=== PATIENT | female | born 1935 | race Caucasian/White ===

== ENCOUNTER → 2018-06-19 | Outpatient (CLI) | payer MEDICARE ==
[~2018-06-19] MED LIST: ASCO500T8 PO; ASPI-496 PO; ASPI325T17 PO; CHOL10002 PO; HYDR-3240 PO; HYDR25TA6 PO; OMEG1CAP34 PO; TRAM50TA2 PO; TURM500C7 PO; UBID100C41 PO
[2018-06-19 08:33] LABS: BASOPHILS # (AUTO) 0.02 x10^3/uL (0-0.1); BASOPHILS % (AUTO) 1 % (0-1); EOSINOPHILS # (AUTO) 0.12 x10^3/uL (0-0.4); EOSINOPHILS % (AUTO) 3 % (1-7); LYMPHOCYTES # (AUTO) 0.85 x10^3/uL (1-3.4); LYMPHOCYTES % (AUTO) 21 % (22-44); MD NO; MEAN CORPUSCULAR HEMOGLOBIN 33.2 pg (27.0-34.8); MEAN CORPUSCULAR VOLUME 97.5 fL (80-100); MEAN PLATELET VOLUME 7.9 fL (7.4-10.4); MONOCYTES # (AUTO) 0.27 x10^3/uL (0.2-0.8); MONOCYTES % (AUTO) 7 % (2-9); NEUTROPHILS # (AUTO) 2.85 x10^3/uL (1.8-6.8); NEUTROPHILS % (AUTO) 69 % (42-75); PLATELET COUNT 193 x10^3/uL (130-400); RED BLOOD COUNT 4.66 x10^6/uL (3.82-5.3); RED CELL DISTRIBUTION WIDTH 14.1 % (9.6-15.2)
[2018-06-19 08:44] LABS: ANION GAP 6 mmol/L (5-15); CALCIUM 9.6 mg/dL (8.5-10.1); CHLORIDE 104 mmol/L (98-107)
[2018-06-19 08:47] LABS: ALANINE AMINOTRANSFERASE 15 U/L (12-78); ALKALINE PHOSPHATASE 82 U/L (45-117); BILIRUBIN,TOTAL 1.3 mg/dL (0.2-1.0); CHOL/HDL RATIO 2.9; CHOLESTEROL, TOTAL 161 mg/dL (140-239); CREATININE 0.54 mg/dL (0.55-1.02); HDL CHOL % 35 % (28-40); HDL CHOLESTEROL (DIRECT) 56 mg/dL (40-60); LDL CHOLESTEROL,CALCULATED 73 mg/dL (54-169); LDL/HDL RATIO 1.3 (0.5-3.0); TOTAL PROTEIN 6.6 g/dL (6.4-8.2); TRIGLYCERIDES 161 mg/dL (50-200); TROPONIN I < 0.015 ng/mL (0.000-0.045); VLDL CHOLESTEROL 32 mg/dL (0-25)
[2018-06-19 08:53] LABS: FREE T4 (FREE THYROXINE) 0.94 ng/dL (0.76-1.46)
== END | disposition home or self-care (01) ==
LOC: CVU 08:03
PROVIDERS: ATTEND Family Medicine
DX: J98.11 Atelectasis (principal); I08.3 Combined rheumatic disorders of mitral, aortic and tricuspid valves; M25.412 Effusion, left shoulder; M25.411 Effusion, right shoulder; K76.89 Other specified diseases of liver; M47.819 Spondylosis without myelopathy or radiculopathy, site unspecified; I10 Essential (primary) hypertension; Z87.891 Personal history of nicotine dependence
CPT/HCPCS: 36415; 71250; 74150; 80053; 80061; 84439; 84443; 84480; 84484; 85025; 93306

== ENCOUNTER 2018-07-01 07:38 | Day surgery (SDC) | payer MEDICARE ==
[~2018-07-01] VITALS: Ht 162.6 cm; Wt 56.7 kg
[2018-07-01 08:20] VITALS: BP 168/97
[2018-07-01] MEDS ORDERED: SODIUM CHLORIDE 0.9% 1,000 ML IV SCH (08:30)
[2018-07-01] MEDS ORDERED: LIDOCAINE-MPF 1%, 5ML ONE (09:29)
[2018-07-01] MEDS ORDERED: FENTANYL PF 100 MCG/2ML ONE (10:19)
[2018-07-01] MEDS ORDERED: MIDAZOLAM 1 MG/ML, 5ML ONE (10:19)
[2018-07-01] MEDS ORDERED: NALOXONE 1 MG/ML, 2ML ONE (10:19)
[2018-07-01] MEDS ORDERED: FLUMAZENIL 0.1 MG/1 ML, 5ML ONE (10:19)
== END 2018-07-01 13:05 | disposition home or self-care (01) ==
LOC: OUT 07:38
PROVIDERS: ATTEND Family Medicine
DX: J98.59 Other diseases of mediastinum, not elsewhere classified (principal); Z88.5 Allergy status to narcotic agent; Z87.891 Personal history of nicotine dependence; I10 Essential (primary) hypertension
CPT/HCPCS: 32405; 71045; 77012; 88305; 88341; 88342; 99156; J2250; J3010; J7030; 99157; J2310

== ENCOUNTER 2018-09-04 14:04 | Outpatient (CLI) | payer MEDICARE ==
[2018-09-04 14:58] LABS: BASOPHILS # (AUTO) 0.02 x10^3/uL (0-0.1); BASOPHILS % (AUTO) 0 % (0-1); EOSINOPHILS # (AUTO) 0.11 x10^3/uL (0-0.4); EOSINOPHILS % (AUTO) 2 % (1-7); LYMPHOCYTES # (AUTO) 1.02 x10^3/uL (1-3.4); LYMPHOCYTES % (AUTO) 19 % (22-44); MD NO; MEAN CORPUSCULAR HEMOGLOBIN 33.2 pg (27.0-34.8); MEAN CORPUSCULAR HGB CONC 33.3 g/dL (32.4-35.8); MEAN CORPUSCULAR VOLUME 99.5 fL (80-100); MEAN PLATELET VOLUME 7.8 fL (7.4-10.4); MONOCYTES # (AUTO) 0.33 x10^3/uL (0.2-0.8); MONOCYTES % (AUTO) 6 % (2-9); NEUTROPHILS # (AUTO) 3.79 x10^3/uL (1.8-6.8); NEUTROPHILS % (AUTO) 72 % (42-75); PLATELET COUNT 209 x10^3/uL (130-400); RED BLOOD COUNT 4.73 x10^6/uL (3.82-5.3); RED CELL DISTRIBUTION WIDTH 14.7 % (9.6-15.2)
[2018-09-04 15:09] LABS: ALANINE AMINOTRANSFERASE 20 U/L (12-78); ALBUMIN 4.1 g/dL (3.4-5.0); ANION GAP 5 mmol/L (5-15); CALCIUM 9.7 mg/dL (8.5-10.1); CHLORIDE 102 mmol/L (98-107); CREATININE 0.75 mg/dL (0.55-1.02)
[2018-09-04 15:11] LABS: ALKALINE PHOSPHATASE 103 U/L (45-117); BILIRUBIN,TOTAL 1.2 mg/dL (0.2-1.0); TOTAL PROTEIN 6.8 g/dL (6.4-8.2)
[2018-09-09] MEDS ORDERED: THROMBIN 20,000 UNIT VIAL TP ONE (06:55)
[2018-09-09] MEDS ORDERED: FENTANYL PF 250 MCG/5ML ONE (11:19)
[2018-09-09] MEDS ORDERED: LIDOCAINE 2%, 6 ML JEL.PF.APP MM ONE (11:20)
== END 2018-09-04 23:59 | disposition home or self-care (01) ==
LOC: STAR 14:04
PROVIDERS: ATTEND Thoracic Surgery (Cardiothoracic Vascular Surgery)
DX: Z01.818 Encounter for other preprocedural examination (principal); D38.2 Neoplasm of uncertain behavior of pleura; R93.41 Abnormal radiologic findings on diagnostic imaging of renal pelvis, ureter, or bladder
CPT/HCPCS: 36415; 80053; 85025; 93005

== ENCOUNTER 2018-09-09 07:30 | Inpatient (IN) | payer MEDICARE ==
[~2018-09-09] VITALS: Ht 163.8 cm; Wt 59.0 kg
[2018-09-09] MEDS ORDERED: GABAPENTIN 300 MG CAPSULE PO STA (09:56)
[2018-09-09] MEDS ORDERED: ACETAMINOPHEN 500 MG TABLET PO STA (09:56)
[2018-09-09] MEDS ORDERED: ASCO500C2 PO (10:00)
[2018-09-09] MEDS ORDERED: TUMERIC PO (10:00)
[2018-09-09] MEDS ORDERED: CHOL100012 PO (10:00)
[2018-09-09] MEDS ORDERED: LACTATED RINGERS 1,000 ML IV SCH ×2 (10:07→13:45)
[2018-09-09] MEDS ORDERED: SUGAMMADEX 200 MG/2 ML IVPush ONE (11:49)
[2018-09-09] MEDS ORDERED: PROPOFOL 10 MG/ML, 20ML ONE (11:49)
[2018-09-09] MEDS ORDERED: DEXAMETHASONE 4 MG/ML, 1ML ONE (11:49)
[2018-09-09] MEDS ORDERED: PHENYLEPHRINE 10 MG/ML ONE (11:49)
[2018-09-09] MEDS ORDERED: ROCURONIUM 10 MG/ML,10ML ONE (11:49)
[2018-09-09] MEDS ORDERED: CEFAZOLIN 1,000 MG ONE (11:49)
[2018-09-09] MEDS ORDERED: MAGNESIUM SULFATE 8 MEQ/2 ML, 2ML ONE (11:49)
[2018-09-09] MEDS ORDERED: SUCCINYLCHOLINE 20 MG/ML, 10ML ONE (11:49)
[2018-09-09] MEDS ORDERED: EPINEPHRINE 1 MG/ML, 1ML ONE (11:49)
[2018-09-09] MEDS ORDERED: ONDANSETRON 2MG/ML, 2ML ONE (11:49)
[2018-09-09] MEDS ORDERED: ONDANSETRON 2MG/ML, 2ML IV PRN (13:30)
[2018-09-09] MEDS ORDERED: MIDAZOLAM 1 MG/ML, 2ML IV PRN (13:30)
[2018-09-09] MEDS ORDERED: METOPROLOL 1 MG/ML, 5ML IV PRN (13:30)
[2018-09-09] MEDS ORDERED: ROPIvacaine/PF 0.2%, 100ML 550 ML (check volume) INJ ONE (13:30)
[2018-09-09] MEDS ORDERED: MEPERIDINE/PF 25MG/0.5ML IVPush PRN (13:30)
[2018-09-09] MEDS ORDERED: OXYcodone 5 MG/5 ML ORAL.SOL UDC PO PRN (13:30)
[2018-09-09] MEDS ORDERED: hydrALAzine 20 MG/ML, 1ML IV PRN (13:30)
[2018-09-09] MEDS ORDERED: ALBUTEROL/IPRATROPIUM 2.5MG/0.5MG, 3 ML NPPB PRN (13:30)
[2018-09-09] MEDS ORDERED: DIPHENHYDRAMINE 25 MG CAPSULE PO PRN (14:00)
[2018-09-09] MEDS ORDERED: ACETAMINOPHEN 650 MG SUPP PR PRN (14:00)
[2018-09-09] MEDS ORDERED: hydrALAzine 20 MG/ML, 1ML IVPush PRN (14:00)
[2018-09-09] MEDS ORDERED: LORazepam 2 MG/ML, 1ML IVPush PRN (14:00)
[2018-09-09] MEDS ORDERED: ENALAPRILAT 1.25 MG/ML, 2ML IVPush PRN (14:00)
[2018-09-09] MEDS ORDERED: ACETAMINOPHEN 325 MG TABLET PO PRN (14:00)
[2018-09-09] MEDS ORDERED: LORazepam 1MG TABLET PO PRN (14:00)
[2018-09-09] MEDS ORDERED: HYDROcodone/APAP 5/325 TABLET PO PRN (14:00)
[2018-09-09] MEDS ORDERED: FENTANYL PF 100 MCG/2ML ONE (14:26)
[2018-09-09] MEDS ORDERED: HYDROmorphone 2 MG/ML, 1ML ONE (14:27)
[2018-09-09] MEDS: FENTANYL PF 100 MCG/2ML IV PRN ×3 (14:29→15:05)
[2018-09-09] MEDS: HYDROmorphone 2 MG/ML, 1ML IVPush PRN ×2 (14:43→14:51)
[2018-09-09] MEDS: HYDROmorphone 2 MG/ML, 1ML IV PRN ×2 (16:09→18:40)
[2018-09-09] MEDS ORDERED: AMIODARONE IN D5W 100 ML IV ONE (17:00)
[2018-09-09] MEDS ORDERED: FILTER 0.22 MICRON IV PRN (17:00)
[2018-09-09] MEDS ORDERED: AMIODARONE 900 MG in DEXTROSE 5% 482 ML IV PRN (17:15)
[2018-09-09] MEDS ORDERED: SODIUM CHLORIDE 0.9%, 500ML IVBOLUS ONE (17:30)
[2018-09-09] MEDS ORDERED: ROPIvacaine/PF 0.2%, 100ML 550 ML (check volume) INJ SCH (18:30)
[2018-09-09] MEDS ORDERED: LACTATED RINGERS 500 ML IVBOLUS ONE (20:30)
[2018-09-09 23:19] LABS: MEAN CORPUSCULAR HEMOGLOBIN 33.7 pg (27.0-34.8); MEAN CORPUSCULAR HGB CONC 33.6 g/dL (32.4-35.8); MEAN CORPUSCULAR VOLUME 100.4 fL (80-100); MEAN PLATELET VOLUME 7.7 fL (7.4-10.4); PLATELET COUNT 191 x10^3/uL (130-400); RED BLOOD COUNT 3.72 x10^6/uL (3.82-5.3); RED CELL DISTRIBUTION WIDTH 14.4 % (9.6-15.2)
[2018-09-09 23:28] LABS: ALANINE AMINOTRANSFERASE 13 U/L (12-78); ALBUMIN 2.9 g/dL (3.4-5.0); ANION GAP 3 mmol/L (5-15); CALCIUM 8.3 mg/dL (8.5-10.1); CHLORIDE 108 mmol/L (98-107); CREATININE 0.51 mg/dL (0.55-1.02)
[2018-09-09 23:33] LABS: ALKALINE PHOSPHATASE 50 U/L (45-117); BILIRUBIN,TOTAL 1.6 mg/dL (0.2-1.0); TOTAL PROTEIN 4.7 g/dL (6.4-8.2); TROPONIN I 0.045 ng/mL (0.000-0.045)
[2018-09-09 23:46] LABS: BASOPHILS # (AUTO) 0.01 x10^3/uL (0-0.1); BASOPHILS % (AUTO) 0 % (0-1); EOSINOPHILS % (AUTO) 0 % (1-7); LYMPHOCYTES % (AUTO) 3 % (22-44); MD MORPH REVIEW ONLY; MONOCYTES # (AUTO) 0.33 x10^3/uL (0.2-0.8); MONOCYTES % (AUTO) 3 % (2-9); NEUTROPHILS # (AUTO) 9.61 x10^3/uL (1.8-6.8); NEUTROPHILS % (AUTO) 94 % (42-75)
[2018-09-09 23:47] LABS: <RBC MORPHOLOGY> NORMAL
[2018-09-09 23:48] LABS: <PLATELET ESTIMATE> ADEQUATE; <PLT MORPHOLOGY> NORMAL PLT MORPH; TOXIC GRAN 1+
[2018-09-10] MEDS: HYDROmorphone 2 MG/ML, 1ML IV PRN ×2 (03:18→06:06)
[2018-09-10] MEDS ORDERED: LACTATED RINGERS 500 ML IVBOLUS ONE ×5 (03:30→07:30)
[2018-09-10 05:38] LABS: BASOPHILS % (AUTO) 0 % (0-1); EOSINOPHILS % (AUTO) 0 % (1-7); LYMPHOCYTES # (AUTO) 0.28 x10^3/uL (1-3.4); LYMPHOCYTES % (AUTO) 3 % (22-44); MD NO; MEAN CORPUSCULAR HGB CONC 33.9 g/dL (32.4-35.8); MEAN CORPUSCULAR VOLUME 100.3 fL (80-100); MEAN PLATELET VOLUME 8.1 fL (7.4-10.4); MONOCYTES % (AUTO) 4 % (2-9); NEUTROPHILS # (AUTO) 8.36 x10^3/uL (1.8-6.8); NEUTROPHILS % (AUTO) 93 % (42-75); PLATELET COUNT 167 x10^3/uL (130-400); RED BLOOD COUNT 3.53 x10^6/uL (3.82-5.3); RED CELL DISTRIBUTION WIDTH 14.7 % (9.6-15.2)
[2018-09-10 05:48] LABS: ALBUMIN 2.7 g/dL (3.4-5.0); ANION GAP 5 mmol/L (5-15); CALCIUM 8.4 mg/dL (8.5-10.1); CHLORIDE 109 mmol/L (98-107)
[2018-09-10 05:53] LABS: ALANINE AMINOTRANSFERASE 14 U/L (12-78); ALKALINE PHOSPHATASE 50 U/L (45-117); CREATININE 0.48 mg/dL (0.55-1.02); TOTAL PROTEIN 4.6 g/dL (6.4-8.2)
[2018-09-10] MEDS ORDERED: KETOROLAC 30 MG/1 ML ONE (07:06)
[2018-09-10] MEDS ORDERED: KETOROLAC 30 MG/1 ML IVPush SCH (07:30)
[2018-09-10] MEDS ORDERED: ACETAMINOPHEN 500 MG TABLET ONE (10:28)
[2018-09-10] MEDS: ACETAMINOPHEN 500 MG TABLET PO SCH ×3 (10:36→15:51)
[2018-09-10] MEDS: KETOROLAC 30 MG/1 ML IVPush PRN ×2 (10:37→15:51)
[2018-09-10] MEDS: ENOXAPARIN 40 MG/0.4 ML SQ SCH (13:22)
[2018-09-10] MEDS: ONDANSETRON 2MG/ML, 2ML IVPush PRN (17:00)
[2018-09-10] MEDS ORDERED: SODIUM CHLORIDE 0.9%, 250ML IVBOLUS ONE (19:30)
[2018-09-11] MEDS: ACETAMINOPHEN 500 MG TABLET PO SCH ×5 (00:04→21:06)
[2018-09-11] MEDS: KETOROLAC 30 MG/1 ML IVPush PRN ×2 (04:22→21:06)
[2018-09-11 04:52] LABS: BASOPHILS # (AUTO) 0.01 x10^3/uL (0-0.1); BASOPHILS % (AUTO) 0 % (0-1); EOSINOPHILS # (AUTO) 0.13 x10^3/uL (0-0.4); EOSINOPHILS % (AUTO) 2 % (1-7); LYMPHOCYTES # (AUTO) 0.63 x10^3/uL (1-3.4); LYMPHOCYTES % (AUTO) 8 % (22-44); MD NO; MEAN CORPUSCULAR HEMOGLOBIN 33.3 pg (27.0-34.8); MEAN CORPUSCULAR HGB CONC 33.1 g/dL (32.4-35.8); MEAN CORPUSCULAR VOLUME 100.7 fL (80-100); MEAN PLATELET VOLUME 7.7 fL (7.4-10.4); MONOCYTES % (AUTO) 5 % (2-9); NEUTROPHILS # (AUTO) 6.44 x10^3/uL (1.8-6.8); NEUTROPHILS % (AUTO) 85 % (42-75); PLATELET COUNT 152 x10^3/uL (130-400); RED BLOOD COUNT 3.15 x10^6/uL (3.82-5.3); RED CELL DISTRIBUTION WIDTH 15.5 % (9.6-15.2)
[2018-09-11 05:01] LABS: ALBUMIN 2.3 g/dL (3.4-5.0); ANION GAP 3 mmol/L (5-15); CALCIUM 8.6 mg/dL (8.5-10.1); CHLORIDE 105 mmol/L (98-107)
[2018-09-11 05:04] LABS: ALANINE AMINOTRANSFERASE 12 U/L (12-78); ALKALINE PHOSPHATASE 47 U/L (45-117); BILIRUBIN,TOTAL 1.1 mg/dL (0.2-1.0); CREATININE 0.54 mg/dL (0.55-1.02); TOTAL PROTEIN 4.4 g/dL (6.4-8.2)
[2018-09-11] MEDS: ONDANSETRON 2MG/ML, 2ML IVPush PRN (12:13)
[2018-09-11] MEDS: ENOXAPARIN 40 MG/0.4 ML SQ SCH (12:28)
[2018-09-11 14:43] VITALS: BP 146/74
[2018-09-11 19:52] VITALS: BP 156/79
[2018-09-12 00:48] VITALS: BP 133/81
[2018-09-12] MEDS: ACETAMINOPHEN 500 MG TABLET PO SCH ×2 (06:10→12:25)
[2018-09-12 06:45] VITALS: BP 161/79
[2018-09-12] MEDS ORDERED: HYDR-3240 PO (12:13)
[2018-09-12] MEDS: ENOXAPARIN 40 MG/0.4 ML SQ SCH (12:25)
== END 2018-09-12 12:53 | disposition home or self-care (01) | DRG 165 ==
LOC: ORIP 09:24 → CCU 15:20 → 4NOR 09-11 13:23 → DCLOUNGE 09-12 12:36
PROVIDERS: ADMIT Thoracic Surgery (Cardiothoracic Vascular Surgery); ATTEND Thoracic Surgery (Cardiothoracic Vascular Surgery)
PROC: 03HY32Z Insertion of Monitoring Device into Upper Artery, Percutaneous Approach (ICD-10-PCS; 2018-09-09)
PROC: 02HV33Z Insertion of Infusion Device into Superior Vena Cava, Percutaneous Approach (ICD-10-PCS; 2018-09-09)
PROC: B548ZZA Ultrasonography of Superior Vena Cava, Guidance (ICD-10-PCS; 2018-09-09)
PROC: 0WBC0ZZ Excision of Mediastinum, Open Approach (ICD-10-PCS; principal; 2018-09-09 11:30)
PROC: 3E0T3BZ Introduction of Anesthetic Agent into Peripheral Nerves and Plexi, Percutaneous Approach (ICD-10-PCS; 2018-09-11)
DX: J98.59 Other diseases of mediastinum, not elsewhere classified (principal); I48.91 Unspecified atrial fibrillation; I95.9 Hypotension, unspecified; R53.83 Other fatigue; D38.3 Neoplasm of uncertain behavior of mediastinum; D38.2 Neoplasm of uncertain behavior of pleura; D75.89 Other specified diseases of blood and blood-forming organs; I10 Essential (primary) hypertension; D38.4 Neoplasm of uncertain behavior of thymus; M19.90 Unspecified osteoarthritis, unspecified site; Z96.642 Presence of left artificial hip joint; Z98.51 Tubal ligation status; Z88.6 Allergy status to analgesic agent; Z72.0 Tobacco use; Z79.899 Other long term (current) drug therapy
CPT/HCPCS: 36415; 71045; 80053; 82330; 83735; 83880; 84100; 84443; 84484; 85025; 86850; 86900; 86923; 87081; 88305; 88341; 88342; 93005; 93306; C1729; G0378; J0171; J0690; J1100; J1170; J1650; J1885; J2405; J2704; J2795; J3010; J3475; J7120; C1760; J0282; J0330; J2370; J7040; J7050; J7060

== ENCOUNTER → 2018-09-22 | Outpatient (CLI) | payer MEDICARE ==
[~2018-09-22] MED LIST changes: +ASCO500C2 PO; +CHOL100012 PO; +TUMERIC PO
== END | disposition home or self-care (01) ==
LOC: STAR 11:25
PROVIDERS: ATTEND Thoracic Surgery (Cardiothoracic Vascular Surgery)
DX: Z01.818 Encounter for other preprocedural examination (principal); I48.91 Unspecified atrial fibrillation; I49.9 Cardiac arrhythmia, unspecified
CPT/HCPCS: 93005

== ENCOUNTER → 2018-10-05 | Outpatient (CLI) | payer MEDICARE | END | disposition home or self-care (01) | LOC: CFH 11:38 | PROVIDERS: ATTEND Family Medicine | DX: J98.11 Atelectasis (principal); J90 Pleural effusion, not elsewhere classified | CPT/HCPCS: 71046 ==

== ENCOUNTER → 2018-10-09 | Outpatient (CLI) | payer MEDICARE | END | disposition home or self-care (01) | LOC: LAB 09:36 | PROVIDERS: ATTEND Internal Medicine Cardiovascular Disease | DX: I48.91 Unspecified atrial fibrillation (principal); I10 Essential (primary) hypertension | CPT/HCPCS: 36415; 80053; 80061; 84436; 84443; 84481; 85025 ==

== ENCOUNTER 2019-12-04 08:16 | Inpatient (IN) | payer MEDICARE ==
[~2019-12-04] VITALS: Ht 165.1 cm; Wt 56.4 kg
--- NOTE | 2019-12-04 08:39 | NUR ---
DR JEONG AT BEDSIDE TO DEJAH PT. 84 YR OLD FEMALE HERE WITH C/O "AFIB, I HAVE HAD NO ENERGY. I HAVE BEEN MONITORING IT. TODAY IT WAS IN THE 120'S. I HAVE BEEN TO THE DR MANY TIMES. SHE HAS BEEN TRYING TO GET ME ON MEDS. THEY ARENT WORKING." PT DENIES CP. "I JUST WANT TO GET ENERGY BACK" PT HERE WITH HER SON. IV STARTED BY XIOMY DEGROOT.
[2019-12-04 08:51] LABS: BASOPHILS # (AUTO) 0.02 x10^3/uL (0-0.1); BASOPHILS % (AUTO) 0 % (0-1); EOSINOPHILS # (AUTO) 0.05 x10^3/uL (0-0.4); EOSINOPHILS % (AUTO) 1 % (1-7); LYMPHOCYTES % (AUTO) 17 % (22-44); MD NO; MEAN CORPUSCULAR HEMOGLOBIN 32.6 pg (27.0-34.8); MEAN CORPUSCULAR HGB CONC 32.8 g/dL (32.4-35.8); MEAN CORPUSCULAR VOLUME 99.6 fL (80-100); MEAN PLATELET VOLUME 7.8 fL (7.4-10.4); MONOCYTES # (AUTO) 0.54 x10^3/uL (0.2-0.8); MONOCYTES % (AUTO) 9 % (2-9); NEUTROPHILS # (AUTO) 4.47 x10^3/uL (1.8-6.8); NEUTROPHILS % (AUTO) 74 % (42-75); PLATELET COUNT 285 x10^3/uL (130-400); RED BLOOD COUNT 4.74 x10^6/uL (3.82-5.3); RED CELL DISTRIBUTION WIDTH 14.7 % (9.6-15.2)
--- NOTE | 2019-12-04 08:56 | NUR ---
BEDSIDE REPORT FROM JUAN DEGROOT.
[2019-12-04] MEDS ORDERED: SODIUM CHLORIDE FLUSH 10ML SYR IVF ONE (09:00)
--- NOTE | 2019-12-04 09:02 | NUR ---
REPORT TO LOR RN
[2019-12-04 09:06] LABS: ALBUMIN 4.1 g/dL (3.4-5.0); ANION GAP 6 mmol/L (5-15); CALCIUM 10.1 mg/dL (8.5-10.1); CHLORIDE 103 mmol/L (98-107); CREATININE 0.83 mg/dL (0.55-1.02)
[2019-12-04 09:10] LABS: TROPONIN I < 0.015 ng/mL (0.000-0.045)
[2019-12-04] MEDS ORDERED: PROPOFOL 10 MG/ML, 20ML ONE (09:32)
[2019-12-04] MEDS ORDERED: KETAMINE 10 MG/ML, 20ML ONE (09:33)
[2019-12-04 09:37] LABS: TOTAL PROTEIN 7.3 g/dL (6.4-8.2)
[2019-12-04 09:51] LABS: BILIRUBIN, DIRECT 0.4 mg/dL (0.1-0.2); BILIRUBIN,INDIRECT 1.6 mg/dL (0.0-2.0)
[2019-12-04] MEDS ORDERED: OMNIPAQUE 350 MG/ML, 75ML BOTTLE ONE (09:55)
[2019-12-04] MEDS ORDERED: PROPOFOL 10 MG/ML, 20ML IVPush ONE (10:00)
[2019-12-04] MEDS ORDERED: KETAMINE 100 MG/ML, 5ML IV ONE (10:00)
[2019-12-04 10:03] LABS: FREE T4 (FREE THYROXINE) 1.21 ng/dL (0.76-1.46)
[2019-12-04] MEDS ORDERED: AMIODARONE 50 MG/ML, 3ML ONE (10:24)
[2019-12-04] MEDS ORDERED: AMIODARONE 50 MG/ML, 3ML IVPush ONE (11:00)
--- NOTE | 2019-12-04 11:42 | NUR ---
PT RESTING ON GURNEY IN NAD, VSS. FALL PRECAUTIONS IN PLACE, CALL LIGHT WITHIN REACH.
--- NOTE | 2019-12-04 12:24 | NUR ---
LATE ENTRY: 1020 PATIENT RECEIVED 30MG OF PROPOFOL AND 20MG KETAMINE FOR SEDATION ADMINISTERED BY DR. JEONG.
--- NOTE | 2019-12-04 12:26 | NUR ---
REPORT CALLED TO PAULIE DEGROOT.
[2019-12-04] MEDS ORDERED: APIX2.5T PO (12:39)
[2019-12-04] MEDS ORDERED: LOSA100T14 PO (12:39)
[2019-12-04] MEDS ORDERED: METO-282 PO (12:39)
[2019-12-04] MEDS ORDERED: AMIO200T42 PO (12:42)
[2019-12-04 12:43] VITALS: BP 177/91
[2019-12-04] MEDS ORDERED: morphine SULFATE 10 MG/ML, 1ML IVPush PRN (15:00)
[2019-12-04] MEDS ORDERED: hydrALAzine 20 MG/ML, 1ML IVPush PRN (15:00)
[2019-12-04] MEDS ORDERED: MELATONIN 5 MG TABLET PO PRN (15:00)
[2019-12-04] MEDS ORDERED: ENALAPRILAT 1.25 MG/ML, 1ML IV PRN (15:00)
[2019-12-04] MEDS ORDERED: BISACODYL 10 MG SUPP PR PRN (15:00)
[2019-12-04] MEDS ORDERED: ONDANSETRON ODT 4 MG PO PRN (15:00)
[2019-12-04] MEDS ORDERED: ACETAMINOPHEN 325 MG TABLET PO PRN (15:00)
[2019-12-04] MEDS ORDERED: POLYETHYLENE GLYCOL 17 GM PACKET PO PRN (15:00)
[2019-12-04 15:12] VITALS: BP 158/80
[2019-12-04 16:04] LABS: FREE T4 (FREE THYROXINE) 1.14 ng/dL (0.76-1.46); TROPONIN I < 0.015 ng/mL (0.000-0.045)
[2019-12-04 19:23] VITALS: BP 162/71
[2019-12-04] MEDS: APIXABAN 2.5 MG TABLET PO SCH (20:09)
[2019-12-04 21:00] LABS: TROPONIN I 0.017 ng/mL (0.000-0.045)
[2019-12-04] MEDS ORDERED: AMIODARONE 200 MG TABLET PO SCH (21:00)
[2019-12-04] MEDS: ONDANSETRON 2MG/ML, 2ML IVPush PRN (21:25)
[2019-12-05 00:37] LABS: MICROSCOPIC INDICATED
[2019-12-05 01:03] VITALS: BP 127/77
[2019-12-05 05:37] LABS: BASOPHILS # (AUTO) 0.01 x10^3/uL (0-0.1); BASOPHILS % (AUTO) 0 % (0-1); EOSINOPHILS # (AUTO) 0.04 x10^3/uL (0-0.4); EOSINOPHILS % (AUTO) 1 % (1-7); LYMPHOCYTES % (AUTO) 20 % (22-44); MD NO; MEAN CORPUSCULAR HEMOGLOBIN 32.4 pg (27.0-34.8); MEAN CORPUSCULAR HGB CONC 32.6 g/dL (32.4-35.8); MEAN CORPUSCULAR VOLUME 99.3 fL (80-100); MEAN PLATELET VOLUME 7.7 fL (7.4-10.4); MONOCYTES # (AUTO) 0.38 x10^3/uL (0.2-0.8); MONOCYTES % (AUTO) 8 % (2-9); NEUTROPHILS # (AUTO) 3.47 x10^3/uL (1.8-6.8); NEUTROPHILS % (AUTO) 71 % (42-75); PLATELET COUNT 208 x10^3/uL (130-400); RED BLOOD COUNT 3.88 x10^6/uL (3.82-5.3); RED CELL DISTRIBUTION WIDTH 14.5 % (9.6-15.2)
[2019-12-05 05:46] LABS: ANION GAP 8 mmol/L (5-15); CHLORIDE 105 mmol/L (98-107)
[2019-12-05 05:53] LABS: ALANINE AMINOTRANSFERASE 12 U/L (12-78); ALBUMIN 3.3 g/dL (3.4-5.0); ALKALINE PHOSPHATASE 95 U/L (45-117); BILIRUBIN,TOTAL 1.7 mg/dL (0.2-1.0); CALCIUM 9.6 mg/dL (8.5-10.1); CHOL/HDL RATIO 2.8; CHOLESTEROL, TOTAL 135 mg/dL (140-239); CREATININE 0.53 mg/dL (0.55-1.02); HDL CHOL % 36 % (28-40); HDL CHOLESTEROL (DIRECT) 49 mg/dL (40-60); LDL CHOLESTEROL,CALCULATED 63 mg/dL (54-169); LDL/HDL RATIO 1.3 (0.5-3.0); TOTAL PROTEIN 5.7 g/dL (6.4-8.2); TRIGLYCERIDES 113 mg/dL (50-200); VLDL CHOLESTEROL 23 mg/dL (0-25)
[2019-12-05 07:03] VITALS: BP 131/68
[2019-12-05] MEDS ORDERED: POTASSIUM CHLORIDE 20 MEQ TAB.ER.PRT PO ONE (08:00)
[2019-12-05] MEDS: PANTOPRAZOLE 40MG TABLET PO SCH (08:16)
[2019-12-05] MEDS: SENNA/DOCUSATE TABLET PO SCH (09:00)
[2019-12-05] MEDS: METOPROLOL SUCCINATE 25 MG TAB.ER.24H PO SCH (09:30)
[2019-12-05] MEDS: LOSARTAN 100 MG TAB PO SCH (09:31)
[2019-12-05] MEDS: APIXABAN 2.5 MG TABLET PO SCH ×2 (09:31→19:59)
[2019-12-05 12:35] VITALS: BP 137/70
[2019-12-05 18:08] VITALS: BP 135/64
[2019-12-06 04:51] VITALS: BP 135/62
[2019-12-06] MEDS: ONDANSETRON 2MG/ML, 2ML IVPush PRN (05:06)
[2019-12-06 06:47] VITALS: BP 144/73
[2019-12-06] MEDS: METOPROLOL SUCCINATE 25 MG TAB.ER.24H PO SCH (08:34)
[2019-12-06] MEDS: PANTOPRAZOLE 40MG TABLET PO SCH (08:35)
[2019-12-06] MEDS: SENNA/DOCUSATE TABLET PO SCH (08:35)
[2019-12-06] MEDS: APIXABAN 2.5 MG TABLET PO SCH ×2 (08:35→20:56)
[2019-12-06 12:28] VITALS: BP 158/69
[2019-12-06] MEDS: LOSARTAN 100 MG TAB PO SCH (13:24)
[2019-12-06 20:11] VITALS: BP 138/78
[2019-12-07 00:07] VITALS: BP 129/71
[2019-12-07 04:36] LABS: ANION GAP 7 mmol/L (5-15); CALCIUM 9.1 mg/dL (8.5-10.1); CHLORIDE 105 mmol/L (98-107); CREATININE 0.53 mg/dL (0.55-1.02)
[2019-12-07 09:40] VITALS: BP 103/58
[2019-12-07] MEDS: LOSARTAN 100 MG TAB PO SCH (09:51)
[2019-12-07] MEDS: METOPROLOL SUCCINATE 25 MG TAB.ER.24H PO SCH (09:51)
[2019-12-07] MEDS: SENNA/DOCUSATE TABLET PO SCH ×2 (09:51→09:54)
[2019-12-07] MEDS: APIXABAN 2.5 MG TABLET PO SCH (09:51)
[2019-12-07] MEDS: PANTOPRAZOLE 40MG TABLET PO SCH (09:51)
[2019-12-07] MEDS ORDERED: ACET325T26 PO (12:11)
[2019-12-07] MEDS ORDERED: TRAM50TA2 PO (12:11)
[2019-12-07] MEDS: ONDANSETRON 2MG/ML, 2ML IVPush PRN (13:11)
[2019-12-07 15:15] VITALS: BP 145/79
[2019-12-08] MEDS ORDERED: [UNRECOGNIZED DRUG - OTHER] PO (00:02)
== END 2019-12-07 16:58 | disposition home or self-care (01) | DRG 309 ==
LOC: ED 08:55 → EDIP 11:53 → 5SO 12:36
PROVIDERS: ADMIT Family Medicine; ATTEND Internal Medicine
PROC: 5A2204Z Restoration of Cardiac Rhythm, Single (ICD-10-PCS; principal; 2019-12-04)
DX: I48.0 Paroxysmal atrial fibrillation (principal); D68.69 Other thrombophilia; N39.0 Urinary tract infection, site not specified; R22.2 Localized swelling, mass and lump, trunk; R09.02 Hypoxemia; R13.10 Dysphagia, unspecified; I10 Essential (primary) hypertension; I48.20 Chronic atrial fibrillation, unspecified; Z96.642 Presence of left artificial hip joint; Z96.659 Presence of unspecified artificial knee joint; E04.2 Nontoxic multinodular goiter; B96.1 Klebsiella pneumoniae [K. pneumoniae] as the cause of diseases classified elsewhere; R00.1 Bradycardia, unspecified; Z79.01 Long term (current) use of anticoagulants; Z79.899 Other long term (current) drug therapy; Z80.0 Family history of malignant neoplasm of digestive organs; Z82.0 Family history of epilepsy and other diseases of the nervous system; Z87.891 Personal history of nicotine dependence; Z88.6 Allergy status to analgesic agent; Z98.51 Tubal ligation status
CPT/HCPCS: 36415; 71045; 71275; 80048; 80053; 80061; 80076; 81001; 82040; 83735; 83880; 84100; 84439; 84443; 84484; 85025; 87077; 87086; 87186; 93005; 96374; 99291; G0378; J2405; Q9967; J0282